=== PATIENT | male | born 2000 | race Two or more races ===

== ENCOUNTER 2023-03-01 04:39 | Emergency (ER) | payer OTHER ==
[~2023-03-01] VITALS: Ht 157.5 cm; Wt 59.0 kg
[2023-03-01] MEDS ORDERED: KETO10TA2 PO (06:38)
== END 2023-03-01 06:43 | disposition home or self-care (01) ==
LOC: ER 04:39
DX: S00.93XA Contusion of unspecified part of head, initial encounter (principal); V49.9XXA Car occupant (driver) (passenger) injured in unspecified traffic accident, initial encounter; Y93.89 Activity, other specified; Y92.413 State road as the place of occurrence of the external cause; Y99.9 Unspecified external cause status